=== PATIENT | male | born 1955 | race Caucasian/White ===

== ENCOUNTER 2021-02-15 10:32 | Inpatient (IN) | payer OTHER ==
[~2021-02-15] VITALS: Ht 182.9 cm; Wt 102.0 kg
[2021-02-15 17:57] LABS: HEMOGLOBIN 7.4 gm/dl (14.0-17.5); RED BLOOD COUNT 2.15 M/UL (4.20-5.50); WHITE BLOOD COUNT 6.7 K/UL (4.5-11.0)
[2021-02-16 05:01] LABS: HEMOGLOBIN 7.1 gm/dl (14.0-17.5); RED BLOOD COUNT 2.1 M/UL (4.20-5.50); WHITE BLOOD COUNT 6.3 K/UL (4.5-11.0)
[2021-02-16 15:10] LABS: HEMOGLOBIN 7.1 gm/dl (14.0-17.5)
[2021-02-16] MEDS ORDERED: BYDUREON BCISE 2 MG SC (16:16)
[2021-02-16] MEDS ORDERED: AMITRIPTYLINE150 MG PO (16:17)
[2021-02-16] MEDS ORDERED: FENOFIBRATE134 MG PO (16:18)
[2021-02-16] MEDS ORDERED: CLOPIDOGREL75 MG PO (16:18)
[2021-02-16] MEDS ORDERED: PAROXETINE HCL30 MG PO (16:19)
[2021-02-16] MEDS ORDERED: PRAVASTATIN SOD80 MG PO (16:19)
[2021-02-16] MEDS ORDERED: TIZANIDINE HCL4 MG PO (16:19)
[2021-02-16] MEDS ORDERED: NOVOLOG FL100 UNIT/1 INJ (16:20)
[2021-02-16] MEDS ORDERED: HYDROCODON-ACE1 EAC6 PO (16:20)
[2021-02-16] MEDS ORDERED: LANTUS SOL100 UNIT/1 SQ (16:21)
[2021-02-16] MEDS ORDERED: ASPIRIN81 MG PO (16:22)
[2021-02-17 06:22] LABS: HEMOGLOBIN 8.4 gm/dl (14.0-17.5); WHITE BLOOD COUNT 6.1 K/UL (4.5-11.0)
[2021-02-17 06:24] LABS: RED BLOOD COUNT 2.49 M/UL (4.20-5.50)
[2021-02-18 04:33] LABS: HEMOGLOBIN 7.9 gm/dl (14.0-17.5); RED BLOOD COUNT 2.36 M/UL (4.20-5.50); WHITE BLOOD COUNT 5.3 K/UL (4.5-11.0)
[2021-02-18 12:14] LABS: HBSAG SCREEN Negative (Negative); HEP A AB, IGM Negative (Negative); HEP B CORE AB, IGM Negative (Negative); HEP C VIRUS AB <0.1 (0.0-0.9)
[2021-02-18 15:15] LABS: HEMATOCRIT 23.1 % (37.5-51.0)
--- NOTE | 2021-02-19 06:13 | NUR ---
HOSPITALIST INFORMED OF CRITICAL GLUCOSE ORDERED 10U HUMALOG NOW AND RECHECK IN 1HR
[2021-02-20 03:41] LABS: HEMOGLOBIN 7.9 gm/dl (14.0-17.5); RED BLOOD COUNT 2.35 M/UL (4.20-5.50)
[2021-02-20 03:45] LABS: WHITE BLOOD COUNT 11.1 K/UL (4.5-11.0)
--- NOTE | 2021-02-20 06:30 | NUR ---
PER DR. CHAMPAGNE, DISCONTINUE THE INSULIN DRIP, CHANGE IV FLUIDS TO 0.9 SODIUM CHLORDIE AT 100ML/HR AND ADD HIGH DOSE SLIDING SCALE TO THE PATIENTS MAR.
[2021-02-21 05:19] LABS: HEMOGLOBIN 7.9 gm/dl (14.0-17.5); RED BLOOD COUNT 2.33 M/UL (4.20-5.50); WHITE BLOOD COUNT 13.1 K/UL (4.5-11.0)
[2021-02-22 07:23] LABS: HEMOGLOBIN 7.2 gm/dl (14.0-17.5); RED BLOOD COUNT 2.24 M/UL (4.20-5.50); WHITE BLOOD COUNT 13.2 K/UL (4.5-11.0)
[2021-02-23 05:40] LABS: HEMOGLOBIN 7.5 gm/dl (14.0-17.5); RED BLOOD COUNT 2.23 M/UL (4.20-5.50)
[2021-02-23 05:47] LABS: WHITE BLOOD COUNT 5.6 K/UL (4.5-11.0)
[2021-02-24 05:07] LABS: HEMOGLOBIN 7.1 gm/dl (14.0-17.5); RED BLOOD COUNT 2.11 M/UL (4.20-5.50)
[2021-02-24 15:10] LABS: A/G RATIO 1.1 (0.7-1.7); ALBUMIN 2.6 g/dL (2.9-4.4); ALPHA-1-GLOBULIN 0.4 g/dL (0.0-0.4); ALPHA-2-GLOBULIN 0.8 g/dL (0.4-1.0); BETA GLOBULIN 0.9 g/dL (0.7-1.3); GAMMA GLOBULIN 0.6 g/dL (0.4-1.8); GLOBULIN, TOTAL 2.6 g/dL (2.2-3.9); IMMUNOGLOBULIN A, QN, SERUM 33 mg/dL (61-437); IMMUNOGLOBULIN G, QN, SERUM 460 mg/dL (603-1613); IMMUNOGLOBULIN M, QN, SERUM 10 mg/dL (20-172); M-SPIKE 0.2 g/dL (Not Observed); PROTEIN, TOTAL, SERUM 5.2 g/dL (6.0-8.5)
[2021-02-25 05:03] LABS: HEMOGLOBIN 7.3 gm/dl (14.0-17.5); RED BLOOD COUNT 2.2 M/UL (4.20-5.50); WHITE BLOOD COUNT 5.3 K/UL (4.5-11.0)
[2021-02-25 14:30] LABS: CRYPTOCOCCUS NEOFORMANS/GATTII Not Detected (Negative); CYTOMEGALOVIRUS Not Detected (Negative); ENTEROVIRUS Not Detected (Negative); ESCHERICHIA COLI K1 Not Detected (Negative); HAEMOPHILUS INFLUENZAE Not Detected (Negative); HERPES SIMPLEX VIRUS 1 Not Detected (Negative); HERPES SIMPLEX VIRUS 2 Not Detected (Negative); HUMAN HERPESVIRUS 6 Not Detected (Negative); HUMAN PARECHOVIRUS Not Detected (Negative); LISTERIA MONOCYTOGENES Not Detected (Negative); NEISERRIA MENINGITIDIS Not Detected (Negative); STREPTOCOCCUS AGALACTIAE Not Detected (Negative); VARICELLA ZOSTER VIRUS Not Detected (Negative)
[2021-02-25 14:55] LABS: RBC (AUTOMATED) 2500 10^6 (0); WBC (AUTOMATED 9 10^3 (0-5)
[2021-02-25 14:56] LABS: RBC (AUTOMATED) 1900 10^6 (0); WBC (AUTOMATED 8 10^3 (0-5)
[2021-02-25 15:08] LABS: GLUCOSE,CSF 153 mg/dL (50-80); TOTAL PROTEIN,CSF 59 mg/dL (20-45)
[2021-02-25 16:11] LABS: STREPTOCOCCUS PNEUMONIAE DETECTED (Negative)
[2021-02-26 05:31] LABS: HEMOGLOBIN 8.2 gm/dl (14.0-17.5)
[2021-02-26 05:35] LABS: RED BLOOD COUNT 2.45 M/UL (4.20-5.50); WHITE BLOOD COUNT 16.5 K/UL (4.5-11.0)
[2021-02-27 15:17] LABS: HEMOGLOBIN 7.9 gm/dl (14.0-17.5); RED BLOOD COUNT 2.35 M/UL (4.20-5.50)
[2021-02-27 15:18] LABS: WHITE BLOOD COUNT 8.5 K/UL (4.5-11.0)
[2021-02-28 05:31] LABS: HEMOGLOBIN 7.7 gm/dl (14.0-17.5); RED BLOOD COUNT 2.31 M/UL (4.20-5.50)
[2021-02-28 05:40] LABS: WHITE BLOOD COUNT 4.6 K/UL (4.5-11.0)
[2021-03-01 05:45] LABS: HEMOGLOBIN 7.4 gm/dl (14.0-17.5); RED BLOOD COUNT 2.25 M/UL (4.20-5.50)
[2021-03-01 05:51] LABS: WHITE BLOOD COUNT 7.2 K/UL (4.5-11.0)
[2021-03-02 04:55] LABS: HEMOGLOBIN 7.4 gm/dl (14.0-17.5); RED BLOOD COUNT 2.23 M/UL (4.20-5.50)
[2021-03-02 04:56] LABS: WHITE BLOOD COUNT 17.8 K/UL (4.5-11.0)
[2021-03-03 06:06] LABS: RED BLOOD COUNT 1.87 M/UL (4.20-5.50)
[2021-03-03 06:07] LABS: HEMOGLOBIN 6.3 gm/dl (14.0-17.5)
--- NOTE | 2021-03-03 12:14 | NUR ---
Patient assessment done for EEG. Unable to perform EEG at this time due to patient movements and unable to follow verbal commands. Spoke with Shanel KIM.
[2021-03-03 17:02] LABS: WHITE BLOOD COUNT 11.7 K/UL (4.5-11.0)
[2021-03-03 17:11] LABS: HEMOGLOBIN 9.3 gm/dl (14.0-17.5); RED BLOOD COUNT 2.82 M/UL (4.20-5.50)
[2021-03-04 03:41] LABS: HEMOGLOBIN 8.6 gm/dl (14.0-17.5); RED BLOOD COUNT 2.57 M/UL (4.20-5.50); WHITE BLOOD COUNT 6.5 K/UL (4.5-11.0)
[2021-03-05 03:22] LABS: HEMOGLOBIN 7.8 gm/dl (14.0-17.5); RED BLOOD COUNT 2.39 M/UL (4.20-5.50); WHITE BLOOD COUNT 7.1 K/UL (4.5-11.0)
[2021-03-06 05:12] LABS: HEMOGLOBIN 7.9 gm/dl (14.0-17.5); RED BLOOD COUNT 2.42 M/UL (4.20-5.50); WHITE BLOOD COUNT 7.3 K/UL (4.5-11.0)
[2021-03-07 04:50] LABS: HEMOGLOBIN 8.7 gm/dl (14.0-17.5); WHITE BLOOD COUNT 8.1 K/UL (4.5-11.0)
[2021-03-07 05:05] LABS: RED BLOOD COUNT 2.69 M/UL (4.20-5.50)
[2021-03-08 04:33] LABS: HEMOGLOBIN 7.7 gm/dl (14.0-17.5); WHITE BLOOD COUNT 6.9 K/UL (4.5-11.0)
--- NOTE | 2021-03-08 19:05 | NUR ---
1900 REQUESTED TO TALK TO OPERATOR AUTOMATED PROCESS. RN SPOKE TO EYAD OPERATOR AUTOMATED PROCESS AND EXPLAINED THE SERIES OF EVENTS THAT OCCURED DURING THE DAY. IN THE MORNING, PATIENTS REQUESTED THAT WE HOLD THE PO RITALIN DUE TO THE PATIENT BECOMING PROGRESSIVLY MORE AGITATED AND RESTLESS. DR. CHAMPAGNE WAS NOTIFIED OF THIS REQUEST AND HE STATED OKAY TO HOLD IT. THROUGOUT THE DAY, THE PATIENT WAS STILL BECOMING MORE RESTLESS. PATIENT MOVING AROUND IN BED AND MOVING ARMS UP AND DOWN. VITAL SIGNS STABLE THROUGHOUT THE DAY ON ROOM AIR. DR. CASTILLO MADE ROUNDS AT 1530 AND WAS AWARE THAT PATIENT WAS RESTLESS. HE STATED TO GIVE 2 MG ATIVAN IVP. WHEN ATIVAN WAS GIVEN, PATIENT BECAME EVEN MORE RESTLESS AND WAS VERY AGITATED. PATIENT WAS TACHYCARDIC AND TACHYPNIC. DR. CASTILLO STATED TO GIVE 2 MG VERSED IVP, PUT ON SOFT WRIST RESTRAINTS, AND PUT PATIENT BACK ON THE VENTILATOR. AFTER GIVING VERSED IVP, PATIENT WAS CALM. SEDATION ORDERS WERE DISCUSSED BETWEEN RN AND MD. 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 RN EXPLAINED TO MD THAT DR. MCFADDEN USUALLY PREFERS TO ONLY GIVE IVP SEDATION MEDS PRN. DR. CASTILLO STATED THAT HE IS OKAY WITH THE ORDER VERSED IVP 2MG Q2HP THAT WAS IN THE EMAR. MD. STATED THAT IF THE VERSED IVP DOES NOT HELP, WE MAY START SEDATION INFUSION. PATIENT WAS IN THE ROOM DURING THIS TIME. PATIENTS VITAL SIGNS STABLIZED AND PATIENT WAS CALM/DROWSY. MD LEFT THE UNIT. THEN APPROACHED RN AND SAID THAT SHE WANTED A SEDATION INFUSION STARTED AND THAT SHE WANTED TO TALK TO DR. CASTILLO. RN CALLED DR. CASTILLO AND TOLD HIM THIS. SHORLY AFTER MD CAME BACK TO PATIENTS BEDSIDE AND TALKED WITH THE . DR. CASTILLO ORDERED A PRECEDEX DRIP AND AN ADDITIONAL 2 MG VERSED IVP. PRECEDEX WAS STARTED PER PROTOCOL. PATIENT BECAME HYPOTENSIVE SBP <90, SO PRECEDEX WAS DECREASED PER PROTOCOL. SHIFT REPORT WAS GIVEN DOWN THE HALLWAY TO AVOID DISTRACTIONS. PATIENTS APPROACHED RNS DURING SHIFT CHANGE REPORT AND SAID THAT HE NEEDED TO BE MORE SEDATED. RN EXPLAINED TO THAT PER PROTOCOL, THE PRECEDEX WAS TITRATED DOWN DUE TO HIS BLOOD PRESSURE. THIS IS WHEN THE PATIENTS REQUESTED TO TALK TO THE OPERATOR AUTOMATED PROCESS. EYAD WAS CALLED TO INFORM HIM OF HER REQUEST. AN OFFICIAL BEDSIDE SHIFT CHANGE REPORT WAS THEN GIVEN BY THE RNS. PATIENT WAS CALM/DROWSY AT THIS TIME.
[2021-03-09 06:27] LABS: HEMOGLOBIN 6.9 gm/dl (14.0-17.5); WHITE BLOOD COUNT 10.5 K/UL (4.5-11.0)
--- NOTE | 2021-03-09 15:34 | NUR ---
1449 PT BECOMES VERY AGITATED, PULLING AT RESTRAINTS, KICKING, GOT FOOT CAUGHT IN RECTAL TUBE AND PULLED IT OUT,DR AT BEDSIDE STAT MEDS GIVEN ORDERED, NEW DRS ORDERS CARRIED OUT,FAMILY AT BEDSIDE,PT RESTING MORE COMFORTLY
--- NOTE | 2021-03-09 18:10 | NUR ---
1600 MD CASITLLO NOTIFIED OF THE NEED TO CONTINUE RESTRAINTS, PT CONTINUES TO TRY TO PULL AT VENTILATOR, DIALYSIS CATH, OLMSTEAD, AND RECTAL TUBE. ORDER RECEIVED TO CONTINUE RESTRAINTS
--- NOTE | 2021-03-10 03:48 | NUR ---
SEE EMAR AND SHIFT ASSESSMENT 03/09/21 193 NOTE MADE UNDER ASSESSMENT- REQUESTED THAT ALEVYN DRESSING BE REMOVED AND STAY OFF OF PATIENT COCCYX TO ALLOW AIR. EXPLAINED TO WHY THE DRESSING WAS IN PLACE, UNDERSTOOD. 03/09/212219- OF PATIENT ASKED IF THERE WAS ANYTHING ELSE TO GIVE TO SEDATE PATIENT MORE, EXPLAINED TO THERE WERE ORDERS IN PLACE PER PROTOCOL FOR DIPRIVAN, EXPLAINED TO WHAT DIPRIVAN WAS. UNDERSTOOD AND ASKED IF NURSE COULD START THAT MEDICATION WELL.
[2021-03-10 05:17] LABS: RED BLOOD COUNT 2.12 M/UL (4.20-5.50); WHITE BLOOD COUNT 9.5 K/UL (4.5-11.0)
[2021-03-11 04:50] LABS: HEMOGLOBIN 8.8 gm/dl (14.0-17.5)
[2021-03-11 04:52] LABS: RED BLOOD COUNT 2.72 M/UL (4.20-5.50); WHITE BLOOD COUNT 6.8 K/UL (4.5-11.0)
[2021-03-12 05:39] LABS: HEMOGLOBIN 8.3 gm/dl (14.0-17.5); RED BLOOD COUNT 2.58 M/UL (4.20-5.50); WHITE BLOOD COUNT 6.9 K/UL (4.5-11.0)
[2021-03-12 16:12] LABS: ALKALINE PHOSPHATASE, S 49 IU/L (48-121); BONE FRACTION: 37 % (12-68); INTESTINAL FRAC.: 22 % (0-18); LIVER FRACTION: 41 % (13-88)
[2021-03-13 04:10] LABS: HEMOGLOBIN 7.7 gm/dl (14.0-17.5); RED BLOOD COUNT 2.42 M/UL (4.20-5.50); WHITE BLOOD COUNT 5.9 K/UL (4.5-11.0)
[2021-03-13 15:12] LABS: LYME IGG/IGM AB <0.91 ISR (0.00-0.90)
[2021-03-14 05:19] LABS: HEMOGLOBIN 7.5 gm/dl (14.0-17.5); RED BLOOD COUNT 2.33 M/UL (4.20-5.50)
[2021-03-15 03:17] LABS: HEMOGLOBIN 7.8 gm/dl (14.0-17.5); RED BLOOD COUNT 2.53 M/UL (4.20-5.50)
[2021-03-15 03:21] LABS: WHITE BLOOD COUNT 6.3 K/UL (4.5-11.0)
[2021-03-16 03:26] LABS: HEMOGLOBIN 7.3 gm/dl (14.0-17.5); RED BLOOD COUNT 2.44 M/UL (4.20-5.50)
[2021-03-16 03:28] LABS: WHITE BLOOD COUNT 10.1 K/UL (4.5-11.0)
[2021-03-16 15:10] LABS: HBSAG SCREEN Negative (Negative); HEP A AB, IGM Negative (Negative); HEP B CORE AB, IGM Negative (Negative); HEP C VIRUS AB <0.1 (0.0-0.9)
[2021-03-17 04:01] LABS: HEMOGLOBIN 7.4 gm/dl (14.0-17.5); RED BLOOD COUNT 2.27 M/UL (4.20-5.50); WHITE BLOOD COUNT 7.8 K/UL (4.5-11.0)
[2021-03-18 05:46] LABS: RED BLOOD COUNT 2.11 M/UL (4.20-5.50); WHITE BLOOD COUNT 6.6 K/UL (4.5-11.0)
[2021-03-18 05:56] LABS: HEMOGLOBIN 6.5 gm/dl (14.0-17.5)
[2021-03-18] MEDS ORDERED: LOPRESSOR 50 MG50 MG PEG (15:08)
[2021-03-18] MEDS ORDERED: IPRAT-ALBUT 0.5-3 ML NEB (15:08)
[2021-03-18] MEDS ORDERED: SYNTHROID25 MCG PEG (15:12)
[2021-03-19 19:12] LABS: CMV QUANT DNA PCR (PLASMA) Positive < 200 IU/mL (Negative)
== END 2021-03-18 15:46 | DRG 4 ==
LOC: CCU 16:15 → 2 EAST 02-19 13:53 → CCU 02-27 14:00
PROVIDERS: Family Medicine; Internal Medicine; Internal Medicine Hematology & Oncology; Internal Medicine Nephrology; Internal Medicine Pulmonary Disease; Registered Nurse; ADMIT Internal Medicine
PROC: 0BH17EZ Insertion of Endotracheal Airway into Trachea, Via Natural or Artificial Opening (ICD-10-PCS; principal; 2021-02-15)
PROC: 5A1955Z Respiratory Ventilation, Greater than 96 Consecutive Hours (ICD-10-PCS; 2021-02-15)
PROC: 0DH67UZ Insertion of Feeding Device into Stomach, Via Natural or Artificial Opening (ICD-10-PCS; 2021-02-15)
PROC: 3E0G76Z Introduction of Nutritional Substance into Upper GI, Via Natural or Artificial Opening (ICD-10-PCS; 2021-02-15)
PROC: 30233N1 Transfusion of Nonautologous Red Blood Cells into Peripheral Vein, Percutaneous Approach (ICD-10-PCS; 2021-02-16)
PROC: 5A1D70Z Performance of Urinary Filtration, Intermittent, Less than 6 Hours Per Day (ICD-10-PCS; 2021-02-18)
PROC: 5A1D70Z Performance of Urinary Filtration, Intermittent, Less than 6 Hours Per Day (ICD-10-PCS; 2021-02-20)
PROC: 5A1D70Z Performance of Urinary Filtration, Intermittent, Less than 6 Hours Per Day (ICD-10-PCS; 2021-02-22)
PROC: 5A1D70Z Performance of Urinary Filtration, Intermittent, Less than 6 Hours Per Day (ICD-10-PCS; 2021-02-24)
PROC: 009U3ZX Drainage of Spinal Canal, Percutaneous Approach, Diagnostic (ICD-10-PCS; 2021-02-25)
PROC: B01BYZZ Fluoroscopy of Spinal Cord using Other Contrast (ICD-10-PCS; 2021-02-25)
PROC: 5A1D70Z Performance of Urinary Filtration, Intermittent, Less than 6 Hours Per Day (ICD-10-PCS; 2021-02-25)
PROC: 5A1D70Z Performance of Urinary Filtration, Intermittent, Less than 6 Hours Per Day (ICD-10-PCS; 2021-02-28)
PROC: 3E1M39Z Irrigation of Peritoneal Cavity using Dialysate, Percutaneous Approach (ICD-10-PCS; 2021-02-28)
PROC: 5A1D70Z Performance of Urinary Filtration, Intermittent, Less than 6 Hours Per Day (ICD-10-PCS; 2021-03-03)
PROC: 30233N1 Transfusion of Nonautologous Red Blood Cells into Peripheral Vein, Percutaneous Approach (ICD-10-PCS; 2021-03-03)
PROC: 0B110F4 Bypass Trachea to Cutaneous with Tracheostomy Device, Open Approach (ICD-10-PCS; 2021-03-04)
PROC: 0DH63UZ Insertion of Feeding Device into Stomach, Percutaneous Approach (ICD-10-PCS; 2021-03-04)
PROC: 3E0G76Z Introduction of Nutritional Substance into Upper GI, Via Natural or Artificial Opening (ICD-10-PCS; 2021-03-04)
PROC: 0B918ZZ Drainage of Trachea, Via Natural or Artificial Opening Endoscopic (ICD-10-PCS; 2021-03-04)
PROC: 4A00X4Z Measurement of Central Nervous Electrical Activity, External Approach (ICD-10-PCS; 2021-03-05)
PROC: 5A1D70Z Performance of Urinary Filtration, Intermittent, Less than 6 Hours Per Day (ICD-10-PCS; 2021-03-05)
PROC: 5A1D70Z Performance of Urinary Filtration, Intermittent, Less than 6 Hours Per Day (ICD-10-PCS; 2021-03-06)
PROC: 5A1D70Z Performance of Urinary Filtration, Intermittent, Less than 6 Hours Per Day (ICD-10-PCS; 2021-03-07)
PROC: 30233N1 Transfusion of Nonautologous Red Blood Cells into Peripheral Vein, Percutaneous Approach (ICD-10-PCS; 2021-03-09)
PROC: 5A1D70Z Performance of Urinary Filtration, Intermittent, Less than 6 Hours Per Day (ICD-10-PCS; 2021-03-10)
PROC: 30233N1 Transfusion of Nonautologous Red Blood Cells into Peripheral Vein, Percutaneous Approach (ICD-10-PCS; 2021-03-10)
PROC: 0JH63XZ Insertion of Tunneled Vascular Access Device into Chest Subcutaneous Tissue and Fascia, Percutaneous Approach (ICD-10-PCS; 2021-03-12)
PROC: 02HV33Z Insertion of Infusion Device into Superior Vena Cava, Percutaneous Approach (ICD-10-PCS; 2021-03-12)
PROC: B548ZZA Ultrasonography of Superior Vena Cava, Guidance (ICD-10-PCS; 2021-03-12)
PROC: 02HV33Z Insertion of Infusion Device into Superior Vena Cava, Percutaneous Approach (ICD-10-PCS; 2021-03-12)
PROC: B548ZZA Ultrasonography of Superior Vena Cava, Guidance (ICD-10-PCS; 2021-03-12)
PROC: 5A1D70Z Performance of Urinary Filtration, Intermittent, Less than 6 Hours Per Day (ICD-10-PCS; 2021-03-12)
PROC: 5A1D70Z Performance of Urinary Filtration, Intermittent, Less than 6 Hours Per Day (ICD-10-PCS; 2021-03-14)
PROC: 0B9J7ZX Drainage of Left Lower Lung Lobe, Via Natural or Artificial Opening, Diagnostic (ICD-10-PCS; 2021-03-15)
PROC: 5A1D70Z Performance of Urinary Filtration, Intermittent, Less than 6 Hours Per Day (ICD-10-PCS; 2021-03-15)
PROC: 5A1D70Z Performance of Urinary Filtration, Intermittent, Less than 6 Hours Per Day (ICD-10-PCS; 2021-03-17)
PROC: 5A1D70Z Performance of Urinary Filtration, Intermittent, Less than 6 Hours Per Day (ICD-10-PCS; 2021-03-18)
DX: A41.02 Sepsis due to Methicillin resistant Staphylococcus aureus (principal); R65.21 Severe sepsis with septic shock; J18.9 Pneumonia, unspecified organism; G00.2 Streptococcal meningitis; K72.00 Acute and subacute hepatic failure without coma; N17.0 Acute kidney failure with tubular necrosis; G93.41 Metabolic encephalopathy; J96.21 Acute and chronic respiratory failure with hypoxia; J96.22 Acute and chronic respiratory failure with hypercapnia; R09.2 Respiratory arrest; N18.6 End stage renal disease; C90.00 Multiple myeloma not having achieved remission; D62 Acute posthemorrhagic anemia; E87.1 Hypo-osmolality and hyponatremia; J98.11 Atelectasis; J90 Pleural effusion, not elsewhere classified; D61.818 Other pancytopenia; N39.0 Urinary tract infection, site not specified; E87.2 Acidosis; J95.01 Hemorrhage from tracheostomy stoma; I13.0 Hypertensive heart and chronic kidney disease with heart failure and stage 1 through stage 4 chronic kidney disease, or unspecified chronic kidney disease; N18.30 Chronic kidney disease, stage 3 unspecified; B95.5 Unspecified streptococcus as the cause of diseases classified elsewhere; I48.0 Paroxysmal atrial fibrillation; E78.5 Hyperlipidemia, unspecified; E87.6 Hypokalemia; D69.6 Thrombocytopenia, unspecified; D63.1 Anemia in chronic kidney disease; E11.22 Type 2 diabetes mellitus with diabetic chronic kidney disease; L89.152 Pressure ulcer of sacral region, stage 2; J60 Coalworker's pneumoconiosis; D75.89 Other specified diseases of blood and blood-forming organs; I25.10 Atherosclerotic heart disease of native coronary artery without angina pectoris; Z20.822 Contact with and (suspected) exposure to COVID-19; M47.9 Spondylosis, unspecified; I50.9 Heart failure, unspecified; G89.29 Other chronic pain; E87.70 Fluid overload, unspecified; I73.9 Peripheral vascular disease, unspecified; M54.5 Low back pain; B37.2 Candidiasis of skin and nail; T38.0X5A Adverse effect of glucocorticoids and synthetic analogues, initial encounter; R34 Anuria and oliguria; R74.01 Elevation of levels of liver transaminase levels; M89.9 Disorder of bone, unspecified; E09.65 Drug or chemical induced diabetes mellitus with hyperglycemia; F17.210 Nicotine dependence, cigarettes, uncomplicated; E83.52 Hypercalcemia; R41.82 Altered mental status, unspecified; Z79.01 Long term (current) use of anticoagulants; Z95.1 Presence of aortocoronary bypass graft; Z95.5 Presence of coronary angioplasty implant and graft; Z79.4 Long term (current) use of insulin; Z79.82 Long term (current) use of aspirin; Z91.041 Radiographic dye allergy status; Z79.899 Other long term (current) drug therapy; Z86.74 Personal history of sudden cardiac arrest
CPT/HCPCS: ECHO; 36415; 36430; 36600; 70470; 70551; 71045; 74018; 77001; 80048; 80053; 80074; 80202; 81001; 82009; 82140; 82232; 82330; 82550; 82553; 82607; 82728; 82747; 82784; 82803; 82945; 82962; 83540; 83550; 83605; 83615; 83735; 83880; 83883; 83921; 84075; 84080; 84100; 84132; 84155; 84157; 84165; 84439; 84443; 84484; 85007; 85014; 85018; 85025; 85027; 85610; 85730; 86140; 86334; 86618; 86644; 86694; 86850; 86900; 86901; 86920; 87015; 87040; 87070; 87077; 87116; 87186; 87205; 87206; 87483; 87497; 87799; 89051; 90935; 90937; 90947; 93005; 93306; 94002; 94003; 94640; 94664; 94760; 95819; 97110-GP-CQ; 97162; A6212; C1750; C1751; C1752; C1769; C9113; G0257; J0330; J0360; J0696; J1160; J1200; J1450; J1642; J1644; J2001; J2020; J2060; J2185; J2250; J2370; J2405; J2430; J2704; J2765; J2930; J3010; J3370; J7030; J7040; J7050; J7070; J7120; P9016; P9047; Q9965; U0002